=== PATIENT | female | born 1955 | race Caucasian/White ===

== ENCOUNTER 2023-10-24 13:50 | Emergency (ER) | payer MEDICARE, BC ==
[~2023-10-24] VITALS: Ht 160 cm; Wt 68.0 kg
[2023-10-24] MEDS ORDERED: LIPITOR10 MG PO (15:14)
[2023-10-24] MEDS ORDERED: KETOROLAC TROMETHAMINE 30 MG/ML VIAL IM ONE (15:45)
[2023-10-24] MEDS ORDERED: HYDROCODONE/ACETA 5/325 TAB PO ONE (15:45)
[2023-10-24] MEDS ORDERED: ACETAMINOPHEN 325 MG TAB PO ONE (15:45)
[2023-10-24] MEDS ORDERED: HYDROCODON-ACE1 EA10 PO (16:57)
[2023-10-24 17:07] VITALS: BP 11/81
== END 2023-10-24 17:07 ==
LOC: ED 13:50
DX: M25.552 Pain in left hip (principal); Z79.899 Other long term (current) drug therapy
CPT/HCPCS: 73502; 96372; 99283-25; A9270; J1885